=== PATIENT | male | born 1990 | race Caucasian/White ===

== ENCOUNTER 2017-11-25 13:05 | Emergency (ER) | payer MEDICARE, BC ==
[~2017-11-25] VITALS: Ht 144.8 cm; Wt 44.0 kg
[2017-11-25] MEDS ORDERED: ONFI10 MG (14:16)
[2017-11-25] MEDS ORDERED: KEPPRA500 MG PO (14:16)
[2017-11-25] MEDS ORDERED: DEPAKOTE125 MG (14:16)
[2017-11-25] MEDS ORDERED: VIMPAT10 MG/1 ML (14:16)
[2017-11-25] MEDS ORDERED: SODIUM CHLORIDE 0.9% 1000ML 500 ML IV SCH (15:00)
== END 2017-11-25 16:00 | disposition home or self-care (01) ==
LOC: FSED 13:05
DX: B34.9 Viral infection, unspecified (principal); S22.32XA Fracture of one rib, left side, initial encounter for closed fracture; F72 Severe intellectual disabilities; R73.09 Other abnormal glucose; K59.00 Constipation, unspecified; G47.30 Sleep apnea, unspecified; G40.89 Other seizures; X58.XXXA Exposure to other specified factors, initial encounter; Z87.01 Personal history of pneumonia (recurrent)
CPT/HCPCS: 51701; 96360; 99283